=== PATIENT | male | born 1950 | race Caucasian/White ===

== ENCOUNTER 2024-07-07 10:46 | Outpatient (CLI) | payer OTHER, MEDICARE, SELFPAY ==
--- NOTE | 2024-07-07 10:53 | XR_ITS ---
WS: [id number] XR knee RT 1-2V 17187 REASON FOR EXAM: RIGHT KNEE PAIN FINDINGS: No fracture or focal bone lesion. Mild to moderate narrowing of the medial knee joint space with moderate subchondral sclerosis and mod erate marginal osteophytosis. The lateral knee joint space is intact and well preserved with mild subchondral sclerosis and moderat e marginal osteophytosis. The patella patellofemoral joint space is intact. There is moderate subchondral sclerosis of the jones lla with significant osteophytosis of the patella and moderate opposing femoral condyle osteophytes. XR/XR knee RT 1-2V 61742 IMPRESSION: Moderate osteoarthritis of the right knee.
--- NOTE | 2024-07-07 10:53 | XR_ITS ---
WS: [id number] XR knee LT -2V [id number] REASON FOR EXAM: L KNEE PAIN FINDINGS: No fracture or focal bone lesion. Medial joint space is intact and relatively well preserved. There is mild subchondral sclerosis. Lateral knee joint space is intact and relatively well preserved. Mild subchondral sclerosis. Patellofemoral joint space is intact with moderate subchondral sclerosis and mild osteophytosis of th e patella with mild opposing osteophytosis of the femoral condyles. XR/[place] [id number] IMPRESSION: Mild osteoarthritis of the left knee.
== END 2024-07-07 10:47 | disposition home or self-care (01) ==
LOC: RAD 10:52
PROVIDERS: PCP Nurse Practitioner Family; Visit Provider Nurse Practitioner Family
DX: M17.0 Bilateral primary osteoarthritis of knee (principal)
CPT/HCPCS: 73560

== ENCOUNTER → 2024-08-17 08:53 | Outpatient (BNVA) | payer OTHER, MEDICARE, SELFPAY | PROVIDERS: PCP Nurse Practitioner Family; Visit Provider Nurse Practitioner | DX: M17.11 Unilateral primary osteoarthritis, right knee (principal); M25.562 Pain in left knee; M25.761 Osteophyte, right knee; M25.762 Osteophyte, left knee | CPT/HCPCS: 73560; 73565 ==

== ENCOUNTER 2024-08-17 10:42 | Outpatient (CLI) | payer OTHER, MEDICARE, SELFPAY | END 2024-08-17 10:43 | disposition home or self-care (01) | LOC: SPT 10:42 | PROVIDERS: PCP Nurse Practitioner Family; Visit Provider Nurse Practitioner | DX: Z46.89 Encounter for fitting and adjustment of other specified devices (principal); M25.561 Pain in right knee | CPT/HCPCS: 97760; L1812 ==

== ENCOUNTER → 2025-08-09 12:32 | Outpatient (BNVA) | payer MEDICARE, OTHER, SELFPAY | PROVIDERS: PCP Nurse Practitioner Family; Visit Provider Internal Medicine | DX: R07.9 Chest pain, unspecified (principal); Z87.891 Personal history of nicotine dependence; R06.09 Other forms of dyspnea; I10 Essential (primary) hypertension; E78.2 Mixed hyperlipidemia; I45.2 Bifascicular block | CPT/HCPCS: 93005; 99204 ==

== ENCOUNTER → 2025-08-16 10:27 | Outpatient (BNVA) | payer MEDICARE, OTHER, SELFPAY | PROVIDERS: PCP Nurse Practitioner Family; Visit Provider Nurse Practitioner | DX: M17.11 Unilateral primary osteoarthritis, right knee (principal); M17.12 Unilateral primary osteoarthritis, left knee | CPT/HCPCS: 73560; 73565; 99214 ==

== ENCOUNTER 2025-08-23 09:48 | Outpatient (CLI) | payer OTHER, MEDICARE, SELFPAY ==
[2025-08-23 10:13] LABS: Hematocrit 42.0 % (37-53); Hemoglobin 14.10 g/dL (11.27-16.99); Mean Corpuscular HGB Conc 33.6 g/dL (30-55); Mean Corpuscular Hemoglobin 30.5 pg (27-33); Mean Corpuscular Volume 90.9 fl (82-101); Nucleated Red Blood Cells % 0 %; Platelet Count 182 10^3/cmm (157-399); Red Blood Count 4.62 10^6/uL (3.85-5.65); White Blood Count 5.07 10^3/uL (3.29-11.43)
[2025-08-23 10:22] LABS: Glucose Urine UA 3+ (Normal); Nitrate Urine Negative (Negative); Specific Gravity, Urine 1.023 (1.005-1.030)
[2025-08-23 10:27] LABS: Add Urine Microscopic? YES
[2025-08-23 10:33] LABS: Alanine Aminotransferase 24 U/L (0-41); Albumin Level 4.3 g/dL (3.5-5.2); Alkaline Phosphatase 75 U/L (40-130); Anion Gap 18.6 (5-19); Aspartate Amino Transferase 47 U/L (0-40); Blood Urea Nitrogen 33 mg/dL (8-23); Calcium 9.8 mg/dL (8.5-10.5); Carbon Dioxide 24 mmol/L (22-29); Chloride 100 mmol/L (98-107); Globulin 2.9 g/dL (1.3-4.6); Glucose 271 mg/dL (65-115); Osmolality Calculated 303 mOsm/kg (285-295); Potassium 4.6 mmol/L (3.5-5.1); Sodium 138 mmol/L (136-145); Total Protein 7.2 g/dL (6.6-8.7)
== END 2025-08-23 09:49 | disposition home or self-care (01) ==
LOC: LAB 09:50
PROVIDERS: PCP Nurse Practitioner Family; Visit Provider Nurse Practitioner
DX: Z01.818 Encounter for other preprocedural examination (principal)
CPT/HCPCS: 36415; 80053; 81001; 85025

== ENCOUNTER 2025-09-01 12:35 | Outpatient (CLI) | payer OTHER, MEDICARE, SELFPAY ==
--- NOTE | 2025-09-01 13:30 | CT_ITS ---
WS: [id number] CT RIGHT KNEE, NONCONTRAST [facility] TECHNIQUE: Noncontrast CT of the RIGHT knee to include the RIGHT hip and ankle. CLINICAL INFORMATION: right knee osteoarthritis DLP: 1034.[address] scans at [facility] use at least one of these dose optimization techniques: automated exposure control; mA and/or kV adjustment per patient size (includes targeted exams where dose is matched to clinical indication); or iterative reconstruction. FINDINGS: Advanced tricompartmental arthritis RIGHT knee. Hypertrophic changes along the joint line. Advanced joint space narrowing medial joint compartment. Vascular calcification. Hypertrophic patella. Advanced degenerative narrowing patellofemoral articulation. Vascular calcification. Moderate degenerative narrowing both hips. Sigmoid constipation. CT/CT knee RT [facility] [id number] IMPRESSION: Images obtained for preoperative purposes.
== END 2025-09-01 12:36 | disposition home or self-care (01) ==
LOC: RAD 12:37
PROVIDERS: PCP Nurse Practitioner Family; Visit Provider Nurse Practitioner
DX: M17.0 Bilateral primary osteoarthritis of knee (principal); I70.201 Unspecified atherosclerosis of native arteries of extremities, right leg; M22.2X1 Patellofemoral disorders, right knee; M16.0 Bilateral primary osteoarthritis of hip; K59.00 Constipation, unspecified
CPT/HCPCS: 73700

== ENCOUNTER 2025-09-27 08:18 | Outpatient (CLI) | payer OTHER, MEDICARE, SELFPAY ==
--- NOTE | 2025-09-27 | ECG_ITS ---
[facility] [facility] Test Date: 2025-09-27 Pat Name: Hermelindo Cunningham Department: Room: Gender: Male [employer] Gun [employer]per: : 1950 Requested By: Isael Robertson Order Number: [id number] Tami MD: CHRISSY ROSE Interpretive Statements Lung unchanged pre/post procedure; Intraprocedure shortess of breath; Symptoms resoled by discharge; Symptoms resoled by discharge NOTE: Please note that this is the electrocardiogram portion of the Lexiscan/Sestamibi stress test. The perfusion scan will be documented separately. DATA: Baseline heart rate was 57 beats per minute. Baseline blood pressure was 128/77 millimeters of mercury. Target heart rate was 146. Maximum heart rate achieved was 90. which was 60 % of the predicted target heart rate. Maximum blood pressure was 134/91 millimeters of mercury. The reason for ending the test was completion of the protocol. The patient did not experience any symptoms. ELECTROCARDIOGRAM: BASELINE: Sinus rhythm. Left axis. Right bundle branch block EXERCISE: After Lexiscan injection, no ST-T changes suggestive of ischemic noted. No arrhythmia noted. CONCLUSION: Please note due to baseline abnormality of the EKG specificity and sensitivity of the EKG portion of LexiScan MIBI stress test will be low 1. EKG not suggestive of ischemia 2. Lexiscan injection unremarkable. 3. Perfusion scan will be documented separately. Electronically Signed On 10-06-2025 20:09:41 RESEARCH METHODOLOGIST by CHRISSY ROSE [email or web address]
--- NOTE | 2025-09-27 08:24 | NMCV_ITS ---
NM steph perf SPECT r/s* [id number] Hermelindo Cunningham Age: 75 Gender: M : 1950 Exam Date: 09/27/2025 09:11 Ordering Phys: Isael Robertson M.D ([email or web address]) Technologist: ARMOND Samaniego Exam Location: [facility] Indications: cp STRESS TEST Please [facility] IMAGE PROTOCOL Rest/Stress 1 Lexiscan Day Radiopharmaceutical Dose (mCi) Administration Site Administered by Rest: Tc-99m 10.3 IV ARMOND Samaniego Sestamibi Stress:Tc-99m 32.3 IV Ignacia Montenegro, EXTRACTOR OPERATOR [employer]ESS Sestamibi Rest: 27-Sep-2025 60 Discovery 630 Stress: 27-Sep-2025 30 Discovery 630 0.4mg Lexiscan. Images obtained in supine and prone position. 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 FUNCTIONAL RESULTS (calculated via Gated SPECT) Stress Image LV EF (%): 65 Stress EDV (mL):127 TID: 0.99 Stress ESV (mL):45 FUNCTIONAL FINDINGS: Inferior wall hypokinesis IMPRESSIONS Large area of old myocardial infarction versus scarring noted in basal distal inferior and inferoapical wall suggestive of possible lesion in RCA territory. Shonna Wallace MD (Electronically Signed) Final Date: 03 October 2025 19:30 S
[2025-09-27 08:30] VITALS: BMI 32.5
[2025-09-27 10:13] VITALS: BP 130/75; PULSE 80
== END 2025-09-27 08:19 | disposition home or self-care (01) ==
LOC: RAD 08:20 → CDL 08:26
PROVIDERS: PCP Nurse Practitioner Family; Visit Provider Internal Medicine
DX: R07.9 Chest pain, unspecified (principal); R06.02 Shortness of breath; R93.1 Abnormal findings on diagnostic imaging of heart and coronary circulation
CPT/HCPCS: 36415; 78452; 93017; 96374; A9500; J2785

== ENCOUNTER 2025-10-04 08:25 | Outpatient (CLI) | payer OTHER, MEDICARE, SELFPAY ==
--- NOTE | 2025-10-04 08:33 | USCV_ITS ---
Hermelindo Cunningham Age: 75 Gender: M : 1950 Exam Date: 10/04/2025 08:47 Ordering Phys: Isael Robertson M.D ([email or web address]) Technologist: Exam Location: [facility] [place] Indication: BP: 125 / 70 HR: 65 Rhythm: Sinus Technical Quality: MEASUREMENTS (Male / Female) Normal Values 2D ECHO LV Diastolic Diameter PLAX 4.8 cm 4.2 - 5.9 / 3.9 - 5.3 cm IVS Diastolic Thickness 1.1 cm 0.6 - 1.0 / 0.6 - 0.9 cm IVS Systolic Thickness 1.5 cm LVPW Diastolic Thickness 1.1 cm 0.6 - 1.0 / 0.6 - 0.9 cm LVPW Systolic Thickness 1.8 cm LVOT Diameter 2.1 cm LV Ejection Fraction 2D Teich 70.6 % LV Ejection Fraction MOD 4C 57.0 % LV Ejection Fraction MOD 2C 71.2 % LV Ejection Fraction 2C AL 72.2 % LA Diameter 4.5 cm RA Systolic Volume 4C AL 31.5 ml RA Systolic Volume 4C MOD 30.2 ml Aorta at Sinotubular Diameter 3.6 cm M-MODE LA Ao Ratio MM 1.1 AV Cusp Separation MM 2.2 cm DOPPLER AV Peak Velocity 109.0 cm/s LVOT Peak Velocity 82.0 cm/s AV Area Cont Eq vti 3.2 cm squared AV Area Cont Eq pk 2.6 cm squared MV Peak Velocity 97.0 cm/s MV Area PHT 2.8 cm squared Mitral E to A Ratio 0.7 TR Peak Velocity 202.0 cm/s TR Peak Gradient 16.3 mmHg TV Peak E Velocity 64.0 cm/s PV Peak Velocity 114.0 cm/s FINDINGS Left Ventricle Normal left ventricular size and systolic function, EF 57%.mild left ventricular hypertrophy. No regional wall motion abnormalities. Grade I/IV diastolic dysfunction (abnormal relaxation filling pattern), normal to mildly elevated filling pressures. Right Ventricle Normal right ventricular size and systolic function. Right Atrium Normal right atrial size. Left Atrium Normal left atrial size. IA Septum Normal appearance of the interatrial septum. Mitral Valve No gross abnormalities noted Aortic Valve No gross abnormalities noted Tricuspid Valve Trace tricuspid valve regurgitation. Pulmonic Valve Pulmonic valve not well visualized. Pericardium No pericardial effusion. Aorta Normal aortic annulus size. IVC Inferior vena cava not visualized. CONCLUSIONS Normal left ventricular size and systolic function, EF 57%.mild left ventricular hypertrophy. No regional wall motion abnormalities. Grade I/IV diastolic dysfunction (abnormal relaxation filling pattern), normal to mildly elevated filling pressures. Trace tricuspid valve regurgitation. There is no pericardial effusion. There are no intracardiac masses. No similar previous studies are available for comparison Dr Nicola Rose MD FAC (Electronically Signed) Final Date: 06 October 2025 13:53 S
== END 2025-10-04 08:26 | disposition home or self-care (01) ==
LOC: RAD 08:26
PROVIDERS: PCP Nurse Practitioner Family; Visit Provider Internal Medicine
DX: R06.02 Shortness of breath (principal); I51.7 Cardiomegaly; R93.1 Abnormal findings on diagnostic imaging of heart and coronary circulation
CPT/HCPCS: 93306